=== PATIENT | male | born 1930 | race Caucasian/White ===

== ENCOUNTER → 2016-12-31 | Outpatient (CLI) | payer OTHER | END | disposition home or self-care (01) | LOC: PCVCCLINIC 11:02 | PROVIDERS: ATTEND Internal Medicine | DX: I25.10 Atherosclerotic heart disease of native coronary artery without angina pectoris (principal); E78.00 Pure hypercholesterolemia, unspecified; I65.29 Occlusion and stenosis of unspecified carotid artery; M79.606 Pain in leg, unspecified; E11.9 Type 2 diabetes mellitus without complications; I10 Essential (primary) hypertension; N28.9 Disorder of kidney and ureter, unspecified | CPT/HCPCS: 80061; G0463 ==

== ENCOUNTER → 2017-01-18 | Outpatient (CLI) | payer OTHER ==
[~2017-01-18] MED LIST: REGADENOSON 0.4 MG/5 ML DISP.SYRIN. IV ONE
== END | disposition home or self-care (01) ==
LOC: PCVCIMAG 08:01
PROVIDERS: ATTEND Internal Medicine
DX: I25.10 Atherosclerotic heart disease of native coronary artery without angina pectoris (principal); I63.9 Cerebral infarction, unspecified; E11.9 Type 2 diabetes mellitus without complications; R06.00 Dyspnea, unspecified; M79.604 Pain in right leg; M79.605 Pain in left leg; Z95.1 Presence of aortocoronary bypass graft
CPT/HCPCS: 78452; 93017; 93925; A9500; J2785

== ENCOUNTER → 2018-01-04 | Outpatient (CLI) | payer OTHER | END | disposition home or self-care (01) | LOC: PCVCIMAG 08:47 | DX: I65.23 Occlusion and stenosis of bilateral carotid arteries (principal); I08.8 Other rheumatic multiple valve diseases; I25.10 Atherosclerotic heart disease of native coronary artery without angina pectoris; E78.00 Pure hypercholesterolemia, unspecified; I10 Essential (primary) hypertension; E11.9 Type 2 diabetes mellitus without complications; N28.9 Disorder of kidney and ureter, unspecified; I73.9 Peripheral vascular disease, unspecified; Z79.899 Other long term (current) drug therapy; Z95.1 Presence of aortocoronary bypass graft | CPT/HCPCS: 93005; 93306; 93880; G0463 ==

== ENCOUNTER → 2018-07-11 | Outpatient (CLI) | payer OTHER | END | disposition home or self-care (01) | LOC: PCVCCLINIC 15:33 | PROVIDERS: ATTEND Internal Medicine | DX: I25.10 Atherosclerotic heart disease of native coronary artery without angina pectoris (principal); I11.0 Hypertensive heart disease with heart failure; I50.32 Chronic diastolic (congestive) heart failure; E78.00 Pure hypercholesterolemia, unspecified; I65.23 Occlusion and stenosis of bilateral carotid arteries; I10 Essential (primary) hypertension; E11.9 Type 2 diabetes mellitus without complications; N28.9 Disorder of kidney and ureter, unspecified; Z79.899 Other long term (current) drug therapy | CPT/HCPCS: 93005; G0463 ==

== ENCOUNTER → 2019-01-16 | Outpatient (CLI) | payer OTHER | END | disposition home or self-care (01) | LOC: PCVCCLINIC 11:38 | PROVIDERS: ATTEND Internal Medicine | DX: I25.10 Atherosclerotic heart disease of native coronary artery without angina pectoris (principal); I11.0 Hypertensive heart disease with heart failure; I50.32 Chronic diastolic (congestive) heart failure; I65.23 Occlusion and stenosis of bilateral carotid arteries; E78.5 Hyperlipidemia, unspecified; I10 Essential (primary) hypertension; E11.9 Type 2 diabetes mellitus without complications; N28.9 Disorder of kidney and ureter, unspecified; K21.9 Gastro-esophageal reflux disease without esophagitis; E78.00 Pure hypercholesterolemia, unspecified; Z79.899 Other long term (current) drug therapy | CPT/HCPCS: 36415; 80061; 93005; G0463 ==

== ENCOUNTER → 2019-07-31 | Outpatient (CLI) | payer OTHER ==
--- NOTE | 2019-07-31 11:10 | PCVCIMAG ---
APPROVED REPORT Indications Stenosis Risk Factors Hypertension: Diabetes Doppler Spectral Velocity Analysis PSV / EDVPSV / EDV ECA (R) 56 / 0 cm/sECA (L) 68 / 0 cm/s dICA (R) 72 / 17 cm/sdICA (L) 53 / 10 cm/s Kandy (R) 58 / 11 cm/smICA (L) 60 / 9 cm/s pICA (R) 45 / 9 cm/spICA (L) 81 / 14 cm/s Bulb (R) 72 / 10 cm/sBulb (L) 69 / 7 cm/s dCCA (R) 82 / 10 cm/sdCCA (L) 96 / 10 cm/s mCCA (R) 81 / 9 cm/smCCA (L) 92 / 14 cm/s Vert (R) 52 / 9 cm/sVert (L) 60 / 11 cm/s ICA/CCA 0.88ICA/CCA 0.84 Basic Measurements Blood Pressure: Pulses: Right Left RightLeft Brachial(Sitting) 171/[id number]/74mmHgTemporal Real Time B-Mode Imaging Vert. (R)AntegradeVert. (L)Antegrade Findings The right carotid bulb has mild plaque. The right proximal internal carotid artery shows no significant stenosis. The right common carotid artery shows no significant stenosis. The right external carotid artery shows no significant stenosis. The left carotid bulb has moderate calcified plaque. The left proximal internal carotid artery shows <40% stenosis. The left common carotid artery shows no significant stenosis. The left external carotid artery shows no significant stenosis. Conclusion 1. Right internal carotid artery mild plaquing without significant stenosis. 2. Left internal carotid artery stenosis (<40%). 3. Antegrade vertebral flow.
--- NOTE | 2019-07-31 11:24 | PCVCIMAG ---
APPROVED REPORT Study performed: 07/31/2019 10:07:54 EXAM: Comprehensive 2D, Doppler, and color-flow Echocardiogram Patient Location: Echo lab Status: routine BSA: 2.00 HR: 71 bpmBP: 172/74 mmHg Rhythm: NSR Other Information Study Quality: Adequate Risk Factors: Cardiac Risk Factors: HTN, DM Indications Congestive Heart Failure CAD 2D Dimensions IVSd: 13.35 (7-11mm) LVDd: 47.48 mm PWd: 14.22 (7-11mm) LVDs: 38.02 (25-40mm) Left Atrium: 49.44 (27-40mm) Aortic Root: 31.75 mm LV Single Plane 4CH: 53.22 % LV Single Plane 2CH: 54.45 % Biplane EF: 53.4 % Volumes Left Atrial Volume (Systole) Single Plane 4CH: 96.40 mLSingle Plane 2CH: 99.19 mL LA ESV Index: 50.00 mL/m2 Aortic Valve AoV Peak Earl.: 1.21 m/s AO Peak Gr.: 5.85 mmHgLVOT Max P.45 mmHg LVOT Max V: 0.78 m/s Mitral Valve E/A Ratio: 2.1 MV Decel. Time: 186.57 ms MV E Max Earl.: 0.72 m/s MV A Earl.: 0.34 m/s IVRT: 83.04 ms Pulmonary Valve PV Peak Earl.: 0.96 m/sPV Peak Gr.: 3.69 mmHg Pulmonary Vein P Vein S: 0.70 m/sP Vein A: 0.37 m/s P Vein D: 1.01 m/sP Vein A Dur.: 124.6 msec P Vein S/D Ratio: 0.69 Tricuspid Valve TR Peak Earl.: 3.26 m/s TR Peak Gr.: 42.47 mmHg Left Ventricle The left ventricle is normal size. There is normal LV segmental wall motion. Mild concentric left ventricular hypertrophy. Left ventricular systolic function is normal. The left ventricular ejection fraction is within the normal range. LVEF is 55-60%. Grade II - pseudonormal filling dynamics. Right Ventricle The right ventricle is normal size. The right ventricular systolic function is normal. Atria Left atrium is severely dilated. Right atrium is moderately dilated. Aortic Valve The aortic valve calcified, trileaflet. Mild aortic regurgitation. There is no aortic valvular stenosis. Mitral Valve The mitral valve is normal in structure. Mild mitral regurgitation. No evidence of mitral valve stenosis. Tricuspid Valve The tricuspid valve is normal in structure. Moderate tricuspid regurgitation with PAP of 50 mmHg. Pulmonic Valve The pulmonary valve is normal in structure. Mild pulmonic regurgitation. Great Vessels The aortic root is normal in size. IVC is normal in size and collapses <50% with inspiration. Pericardium There is no pericardial effusion. There is no pleural effusion. <Conclusion> Left ventricular systolic function is normal. There is normal LV segmental wall motion. LVEF is 55-60%. Moderate diastolic dysfunction Both atria are dilated. The aortic valve calcified, trileaflet. Mild aortic regurgitation, no stenosis. The mitral valve is normal in structure. Mild mitral regurgitation. Moderate tricuspid regurgitation with pulmonary artery pressure of 50 mmHg. There is no pericardial effusion.
== END | disposition home or self-care (01) ==
LOC: PCVCIMAG 09:34
PROVIDERS: ATTEND Internal Medicine
DX: I65.23 Occlusion and stenosis of bilateral carotid arteries (principal); I08.3 Combined rheumatic disorders of mitral, aortic and tricuspid valves; I25.10 Atherosclerotic heart disease of native coronary artery without angina pectoris; I50.9 Heart failure, unspecified
CPT/HCPCS: 93306; 93880